=== PATIENT | female | born 1970 | race Asian ===

== ENCOUNTER 2017-06-01 14:20 | Outpatient (CLI) | payer OTHER, MEDICAID ==
[~2017-06-01 14:20] MED LIST: CYCL-10; DICY20TA55 PO; DIVA500T4 PO; DOCU50CA3; FAMO20TA98 PO; LEVO50TA77 PO; LOSA50TA3 PO; METO25TA3 PO; OMEP20CA4 PO; SER100
== END 2017-06-01 16:52 | disposition home or self-care (01) ==
LOC: SRD 14:20
PROVIDERS: ATTEND Internal Medicine
DX: J45.909 Unspecified asthma, uncomplicated (principal)
CPT/HCPCS: 71020-TC

== ENCOUNTER → 2019-03-13 | Outpatient (CLI) | payer OTHER, MEDICAID ==
[~2019-03-13] MED LIST changes: +FAMO-132 PO; -FAMO20TA98 PO; -LEVO50TA77 PO; +SYN50 PO
== END | disposition home or self-care (01) ==
LOC: SUS 12:19
DX: I65.21 Occlusion and stenosis of right carotid artery (principal); E04.1 Nontoxic single thyroid nodule
CPT/HCPCS: 76536-TC; 93880

== ENCOUNTER 2019-03-25 08:44 | Outpatient (CLI) | payer OTHER, MEDICAID | END 2019-03-25 21:03 | disposition home or self-care (01) | LOC: SCT 08:44 | PROVIDERS: ATTEND Internal Medicine | DX: R91.1 Solitary pulmonary nodule (principal); E04.1 Nontoxic single thyroid nodule; R91.8 Other nonspecific abnormal finding of lung field | CPT/HCPCS: 70490 ==

== ENCOUNTER 2019-07-17 09:19 | Emergency (ER) | payer OTHER, MEDICAID ==
[~2019-07-17] VITALS: Ht 162.6 cm; Wt 54.4 kg
[2019-07-17 09:25] VITALS: BP_SYST 163
--- NOTE | 2019-07-17 09:32 | NUR ---
Patient to ER bed 7 to gown for evaluation. Side rails up. Report given to Deep MILLS.
--- NOTE | 2019-07-17 09:53 | NUR ---
PATIENT PRESENTS TO THE ER WITH TEN DAY HX OF NAUSEA AND DIARRHEA WITH OCCIPITAL HEADACHE; NO TRAUMA, NO OTHER REMARKABLE S/S; PATIENT TO ER #7 AT 0930, ERMD EVALUATION AT 0945
--- NOTE | 2019-07-17 10:05 | NUR ---
URINE DIP, HCG -
[2019-07-17 10:21] LABS: BASOPHILS % (AUTO) 0.8 % (0.0-2.0); EOSINOPHILS # (AUTO) 0.1 K/uL (0.0-0.4); EOSINOPHILS % (AUTO) 1.7 % (0.0-4.0); HEMATOCRIT 38.3 % (36-48); HEMOGLOBIN 12.7 g/dL (12.0-16.0); LYMPHOCYTES # (AUTO) 1.4 K/uL (1.0-5.5); LYMPHOCYTES % (AUTO) 30.5 % (20.5-51.5); MEAN CORPUSCULAR HEMOGLOBIN 32 pg (27-31); MEAN CORPUSCULAR HGB CONC 33 % (32-36); MEAN CORPUSCULAR VOLUME 97 fL (79.0-98.0); MONOCYTES # (AUTO) 0.4 K/uL (0.0-1.0); NEUTROPHILS # (AUTO) 2.5 K/uL (1.8-7.7); PLATELET COUNT (AUTO) 212 K/uL (130-430); RED BLOOD CELL COUNT(AUTO) 3.95 MIL/uL (4.2-6.2); WHITE BLOOD COUNT (AUTO) 4.4 K/uL (4.8-10.8)
[2019-07-17 10:31] LABS: CALCIUM 9.6 mg/dL (8.4-11.0); CREATININE 0.63 mg/dL (0.55-1.30); POTASSIUM 3.7 mmol/L (3.5-5.1)
[2019-07-17 10:36] LABS: ALBUMIN 3.6 g/dL (3.4-4.8); TOTAL BILIRUBIN 0.3 mg/dL (0.0-1.0)
--- NOTE | 2019-07-17 10:37 | NUR ---
REASSESSMENT; PATIENT IS UNGHANGED; DISPOSITION PENDING
[2019-07-17 10:52] VITALS: BP_SYST 120
--- NOTE | 2019-07-17 10:54 | NUR ---
REASSESSMENT BY ERMD; PATIENT PREPARED FOR DISCHARGE; ACI GIVEN AND PATIENT INDICATED FULL UNDERSTANDING; DISCHARGED AMBULATORY, UNCHANGED
== END 2019-07-17 10:52 | disposition home or self-care (01) ==
LOC: SED 09:19
DX: K52.9 Noninfective gastroenteritis and colitis, unspecified (principal); J45.909 Unspecified asthma, uncomplicated; I10 Essential (primary) hypertension; Z88.8 Allergy status to other drugs, medicaments and biological substances; Z88.1 Allergy status to other antibiotic agents; Z79.899 Other long term (current) drug therapy
CPT/HCPCS: 36415; 80053; 85025; 86710; 99283

== ENCOUNTER 2020-03-05 09:03 | Outpatient (CLI) | payer OTHER, MEDICAID | END 2020-03-05 19:51 | disposition home or self-care (01) | LOC: SRD 09:03 | DX: T14.90XD Injury, unspecified, subsequent encounter (principal); X58.XXXD Exposure to other specified factors, subsequent encounter ==

== ENCOUNTER 2020-04-20 08:44 | Outpatient (CLI) | payer OTHER, MEDICAID | END 2020-04-21 07:14 | disposition home or self-care (01) | LOC: SRD 08:44 | PROVIDERS: ATTEND Internal Medicine Pulmonary Disease | DX: J45.909 Unspecified asthma, uncomplicated (principal) | CPT/HCPCS: 71046-TC ==

== ENCOUNTER 2020-06-16 09:00 | Outpatient (CLI) | payer OTHER, MEDICAID | END 2020-06-16 20:31 | disposition home or self-care (01) | LOC: SMA 09:00 | DX: Z12.31 Encounter for screening mammogram for malignant neoplasm of breast (principal) | CPT/HCPCS: 76641; 77067 ==

== ENCOUNTER 2020-08-03 09:05 | Outpatient (CLI) | payer OTHER, MEDICAID | END 2020-08-03 20:25 | disposition home or self-care (01) | LOC: SRD 09:05 | DX: M25.561 Pain in right knee (principal); M25.562 Pain in left knee ==

== ENCOUNTER 2020-11-03 16:02 | Emergency (ER) | payer OTHER, MEDICAID ==
[~2020-11-03] VITALS: Ht 162.6 cm; Wt 58.1 kg
[2020-11-03 16:05] VITALS: BP_SYST 180
[2020-11-03] MEDS: LevALBUTEROL HCL 1.25 MG/0.5 ML *CONC.* VIAL.NEB (XOPENEX CONC.) INH ONE (16:55)
[2020-11-03] MEDS: IPRATROPIUM BROM 0.5 MG/2.5 ML VIAL.NEB (ATROVENT) INH ONE (16:55)
[2020-11-03 17:45] VITALS: BP_SYST 136
== END 2020-11-03 17:45 | disposition home or self-care (01) ==
LOC: SED 16:02
DX: T65.891A Toxic effect of other specified substances, accidental (unintentional), initial encounter (principal); I10 Essential (primary) hypertension; E03.9 Hypothyroidism, unspecified; K21.9 Gastro-esophageal reflux disease without esophagitis; J45.909 Unspecified asthma, uncomplicated; Z79.899 Other long term (current) drug therapy; Z88.0 Allergy status to penicillin; Z88.1 Allergy status to other antibiotic agents; Z88.2 Allergy status to sulfonamides; Z88.6 Allergy status to analgesic agent; Z88.8 Allergy status to other drugs, medicaments and biological substances; Y92.89 Other specified places as the place of occurrence of the external cause
CPT/HCPCS: 94640; 99283; J7612

== ENCOUNTER 2021-06-10 09:09 | Outpatient (CLI) | payer OTHER, MEDICAID ==
[~2021-06-10 09:09] MED LIST changes: -CYCL-10; +CYCL10TA24
== END 2021-06-10 19:25 | disposition home or self-care (01) ==
LOC: SMI 09:09
PROVIDERS: ATTEND Psychiatry & Neurology Neurology
DX: M51.16 Intervertebral disc disorders with radiculopathy, lumbar region (principal); M48.061 Spinal stenosis, lumbar region without neurogenic claudication; M89.38 Hypertrophy of bone, other site
CPT/HCPCS: 72148

== ENCOUNTER 2021-06-17 08:53 | Outpatient (CLI) | payer OTHER, MEDICAID | END 2021-06-17 19:30 | disposition home or self-care (01) | LOC: SMA 08:53 | DX: Z12.31 Encounter for screening mammogram for malignant neoplasm of breast (principal) | CPT/HCPCS: 77067 ==

== ENCOUNTER 2022-12-18 08:29 | Outpatient (CLI) | payer OTHER, MEDICAID | END 2022-12-18 18:55 | disposition home or self-care (01) | LOC: SRD 08:29 | DX: M47.816 Spondylosis without myelopathy or radiculopathy, lumbar region (principal); M79.672 Pain in left foot; M79.671 Pain in right foot; M54.50 Low back pain, unspecified | CPT/HCPCS: 72100-TC ==

== ENCOUNTER 2023-05-18 09:48 | Outpatient (CLI) | payer OTHER, MEDICAID ==
[~2023-05-18 09:48] MED LIST changes: +LOSA-413 PO; -LOSA50TA3 PO
== END 2023-05-18 20:00 | disposition home or self-care (01) ==
LOC: SRD 09:48
PROVIDERS: ATTEND Internal Medicine
DX: M47.816 Spondylosis without myelopathy or radiculopathy, lumbar region (principal); M25.78 Osteophyte, vertebrae; K59.00 Constipation, unspecified; I87.8 Other specified disorders of veins; M25.552 Pain in left hip; M25.551 Pain in right hip
CPT/HCPCS: 72110; 73521

== ENCOUNTER 2024-01-25 09:50 | Outpatient (CLI) | payer OTHER, MEDICAID | END 2024-01-25 19:38 | disposition home or self-care (01) | LOC: SRD 09:50 | PROVIDERS: ATTEND Internal Medicine Rheumatology | DX: M25.571 Pain in right ankle and joints of right foot (principal); M25.572 Pain in left ankle and joints of left foot ==

== ENCOUNTER 2024-04-29 15:23 | Emergency (ER) | payer OTHER, MEDICAID ==
[~2024-04-29] VITALS: Ht 162.6 cm; Wt 59.0 kg
[2024-04-29 15:39] VITALS: BP_SYST 148; PULSE 90; RESP 18; TEMP 97.1; O2SAT 96
[2024-04-29] MEDS: MAG HYDROX/AL HYDROX/SIMETH 30 ML, DICYCLOMINE HCL 20 MG, LIDOCAINE VISCOUS 2% 15ML (PO... PO ONE (16:22)
[2024-04-29 17:14] LABS: BASOPHILS % (AUTO) 0.5 % (0.0-2.0); EOSINOPHILS # (AUTO) 0.1 K/uL (0.0-0.4); EOSINOPHILS % (AUTO) 1.6 % (0.0-4.0); HEMOGLOBIN 12.7 g/dL (12.0-16.0); LYMPHOCYTES # (AUTO) 1.4 K/uL (1.0-5.5); LYMPHOCYTES % (AUTO) 26.6 % (20.5-51.5); MEAN CORPUSCULAR HEMOGLOBIN 31 pg (27-31); MEAN CORPUSCULAR HGB CONC 34 % (32-36); MEAN CORPUSCULAR VOLUME 90 fL (79.0-98.0); MONOCYTES # (AUTO) 0.4 K/uL (0.0-1.0); MONOCYTES % (AUTO) 6.9 % (1.7-9.3); NEUTROPHILS # (AUTO) 3.3 K/uL (1.8-7.7); NEUTROPHILS % (AUTO) 64.4 % (40.0-70.0); PLATELET COUNT (AUTO) 268 K/uL (130-430); RED BLOOD CELL COUNT(AUTO) 4.12 MIL/uL (4.2-6.2); RED CELL DISTRIBUTION WIDTH 12.7 % (9.0-15.0); WHITE BLOOD COUNT (AUTO) 5.1 K/uL (4.8-10.8)
[2024-04-29 17:44] LABS: ALBUMIN 4.2 g/dL (3.4-4.8); BILIRUBIN,DIRECT 0.1 mg/dL (0.0-0.3); CALCIUM 9.2 mg/dL (8.4-11.0); CREATININE 0.94 mg/dL (0.55-1.30); POTASSIUM 3.8 mmol/L (3.5-5.1); TOTAL BILIRUBIN 0.4 mg/dL (0.0-1.0); TOTAL PROTEIN, SERUM 8.7 g/dL (6.4-8.3)
[2024-04-29] MEDS ORDERED: ACET-2634 PO (18:16)
[2024-04-29 18:28] VITALS: BP_SYST 148; PULSE 90; RESP 18; TEMP 97.1; O2SAT 96
== END 2024-04-29 18:28 | disposition home or self-care (01) ==
LOC: SED 15:23
DX: K80.20 Calculus of gallbladder without cholecystitis without obstruction (principal); J45.909 Unspecified asthma, uncomplicated; I10 Essential (primary) hypertension; Z88.0 Allergy status to penicillin; Z88.2 Allergy status to sulfonamides; Z88.5 Allergy status to narcotic agent; Z88.6 Allergy status to analgesic agent; Z88.8 Allergy status to other drugs, medicaments and biological substances
CPT/HCPCS: 99284; 76705; 80076; 80048; 83690; 85025; 36415; J2003